=== PATIENT | female | born 1995 | race Caucasian/White ===

== ENCOUNTER 2023-09-02 18:19 | Emergency (ER) | payer OTHER ==
[2023-09-02 18:42] VITALS: TEMP 97.8; O2SAT 100
--- NOTE | 2023-09-02 19:04 | ERPHSYRPT ---
- History of Present Illness Time Seen by Provider: 09/02/23 18:51 Source: patient Exam Limitations: no limitations Patient Subjective Stated Complaint: Pt states "I have anxiety and and I am not sure if this is anxiety or what but my left arm has been hurting since yesterday it feels like someone is squeezing my left arm." Triage Nursing Assessment: Pt presented alert and oriented X 3, skin pwd. PT appears anxious and is fidgeting. PT speaking rapidly. PT able to calm when speaking. Physician History: Since yesterday pt has had anxiety and left upper arm pain with tingling of her left hand and left side of her neck; denies chest pain, repetitive motion of her left arm, fever. Allergies/Adverse Reactions: Penicillins Allergy (Verified 09/02/23 18:43) nasuea dizzy ibuprofen Adverse Reaction (Severe, Verified 09/02/23 18:42) nasuea and vomiting Home Medications: No Reportable Medications [No Reported Medications] 09/02/23 [History] Hx Tetanus, Diphtheria Vaccination/Date Given: No Hx Influenza Vaccination/Date Given: No Hx Pneumococcal Vaccination/Date Given: No Immunizations Up to Date: No Travel Risk - International Travel Have you traveled outside of the country in past 3 weeks: No - Emerging Infectious Disease Are you exhibiting symptoms associated with any current EIDs: No - Review of Systems Constitutional: No Fever Ears, Nose, & Throat: No Ear Pain, No Throat Pain Respiratory: No Cough Cardiac: No Chest Pain Abdominal/Gastrointestinal: No Abdominal Pain, No Nausea, No Vomiting, No Diarr hea Psychological: Anxiety - Past Medical History Pertinent Past Medical History: Yes Psycho-Social History: Anxiety, Panic Disorder - Past Surgical History Past Surgical History: Yes Other Surgical History: mass in left arm. breast augmentation - Female History Hx Last Menstrual Period: 08/18/2023 Hx Now: No - Social History Smoking Status: Never smoker Exposure to second hand smoke: No Drug Use: none - Social Determinants of Health Will the patient participate in the screening: Yes Do you worry about a steady place to live?: No Do you have any problems with any of the following?: No known problems In the past 12 months,have you had to go without utilities?: No Transportation Issues: No Has anyone in your support network made you feel unsafe?: No Have you or anyone in your house had to go without enough: No - Nursing Vital Signs Nursing Vital Signs: Initial Vital Signs Temperature 97.8 F 09/02/23 18:32 Pulse Rate 102 H 09/02/23 18:32 Respiratory Rate 18 09/02/23 18:32 Blood Pressure 136/84 09/02/23 18:32 O2 Sat by Pulse Oximetry 100 09/02/23 18:32 Pain Scale Pain Intensity 3 - Physical Exam General Appearance: alert, anxiety Eyes, Ears, Nose, Throat Exam: TMs normal, pharynx normal, moist mucous membranes Neck Exam: normal inspection, non-tender Cardiovascular/Respiratory Exam: normal breath sounds, heart sounds normal Abdominal Exam: soft (B.S. normal) Back Exam: normal inspection Shoulder Exam: normal ROM Elbow/Forearm Exam: normal ROM Wrist Exam: normal ROM Hand Exam: normal ROM Neuro/Tendon Exam: normal sensation, normal motor functions, no evidence tendon injury Mental Status Exam: alert, cooperative Skin Exam: warm, dry SpO2 Interpretation: normal SpO2: 100 O2 Delivery: Room Air - Course Nursing assessment & vital signs reviewed: Yes EKG Interpreted by Me: RATE (83), Sinus Rhythm, NORMAL AXIS, Other (QTc = 411) - Radiology Exams Chest X-ray Interpretation: Interpreted by me, No Pneumonia Left Humerus X-ray Interpretation: Interpreted by me, No Fracture Ordered Tests: Active Orders 24 hr Category Date Time Status EKG-ER Only STAT Care 09/02/23 19:06 Active CHEST 2 VIEWS (PA AND LAT) Stat Exams 09/02/23 19:08 Taken HUMERUS Stat Exams 09/02/23 19:10 Taken BMP Stat Lab 09/02/23 19:25 Completed CBC W DIFF Stat Lab 09/02/23 19:25 Completed HCG QUALITATIVE, SERUM Stat Lab 09/02/23 19:25 Completed MAGNESIUM Stat Lab 09/02/23 19:25 Completed TROPONIN Q4H Lab 09/02/23 19:25 Completed TROPONIN Q4H Lab 09/02/23 23:15 Ordered TROPONIN Q4H Lab 09/03/23 03:15 Ordered UA W/RFX UR CULTURE Stat Lab 09/02/23 19:13 Completed Urine Triage Profile Stat Lab 09/02/23 19:13 Completed Medication Summary Discontinued Medications Generic Name Dose Route Start Last Admin Trade Name Freq PRN Reason Stop Dose Admin Lorazepam 1 mg 09/02/23 19:09 09/02/23 19:23 Lorazepam 1 Mg Tablet PO 09/02/23 19:10 1 mg STAT ONE Administration Lorazepam Confirm 09/02/23 19:21 Lorazepam 1 Mg Tablet Administered 09/02/23 19:22 Dose 1 mg .ROUTE .STK-MED ONE Lab/Rad Data: Laboratory Result Diagrams 09/02/23 19:25 09/02/23 19:25 Laboratory Results 09/02/23 09/02/23 09/02/23 Range/Units 19:25 19:25 19:25 WBC (3.98-10.04) x10^3/uL RBC (3.93-5.22) x10^6/uL Hgb (11.2-15.7) g/dL Hct (34.1-44.9) % MCV (79.4-94.8) fL MCH (25.6-32.2) pg MCHC (32.2-35.5) g/dL RDW (11.7-14.4) % Plt Count (182-369) x10^3/uL MPV (9.4-12.3) fL Gran % (34.0-71.1) % Immature Gran % (Auto) (0.001-0.429) % Nucleat RBC Rel Count (0.00-0.2) % Eos # (Auto) (0.04-0.36) x10^3/uL Immature Gran # (Auto) (0.001-0.031) x10^3u/L Absolute Lymphs (auto) (1.18-3.74) x10^3/uL Absolute Monos (auto) (0.24-0.86) x10^3/uL Absolute Nucleated RBC (0.00-0.012) x10^3u/L Lymphocytes % (19.3-51.7) % Monocytes % (4.7-12.5) % Eosinophils % (0.7-5.8) % Basophils % (0.1-1.2) % Absolute Granulocytes (1.56-6.13) x10^3/uL Basophils # (0.01-0.08) x10^3/uL Sodium 139 (135-145) mmol/L Potassium 3.4 L (3.5-5.1) mmol/L Chloride 103 (98-107) mmol/L Carbon Dioxide 26 (22-30) mmol/L Anion Gap 13.0 (5-15) MEQ/L BUN 15 (7-17) mg/dL Creatinine 0.77 (0.52-1.04) mg/dL Estimated GFR 107.0 ML/MIN Glucose 99 (74-106) mg/dL Calcium 10.0 (8.4-10.2) mg/dL Magnesium 1.9 (1.6-2.3) mg/dL Troponin I < 0.012 (0.000-0.033) ng/mL Serum HCG, Qual NEGATIVE (NEGATIVE) Urine Color (Yellow) Urine Appearance (Clear) Urine pH (4.6-8.0) Ur Specific Hasty (1.005-1.030) Urine Protein (Negative) Urine Glucose (UA) (Negative) mg/dL Urine Ketones (Negative) Urine Blood (Negative) Urine Nitrite (Negative) Urine Bilirubin (Negative) Urine Urobilinogen (0.2) mg/dL Ur Leukocyte Esterase (Negative) U Hyaline Cast (Auto) (0-2) /LPF Urine Microscopic RBC (0-5) /HPF Urine Microscopic WBC (0-5) /HPF Ur Epithelial Cells (None Seen) /HPF Urine Bacteria (None Seen) /HPF Urine Culture Reflexed (NO) Urine Opiates Level (NEGATIVE) Ur Methadone (NEGATIVE) Urine Barbiturates (NEGATIVE) Ur Phencyclidine (PCP) (NEGATIVE) Urine Amphetamine (NEGATIVE) U Benzodiazepine Level (NEGATIVE) Urine Cocaine (NEGATIVE) Urine Marijuana (THC) (NEGATIVE) 09/02/23 09/02/23 09/02/23 Range/Units 19:25 19:13 19:13 WBC 8.6 (3.98-10.04) x10^3/uL RBC 4.30 (3.93-5.22) x10^6/uL Hgb 12.8 (11.2-15.7) g/dL Hct 37.6 (34.1-44.9) % MCV 87.4 (79.4-94.8) fL MCH 29.8 (25.6-32.2) pg MCHC 34.0 (32.2-35.5) g/dL RDW 11.9 (11.7-14.4) % Plt Count 269 (182-369) x10^3/uL MPV 9.3 L (9.4-12.3) fL Gran % 47.1 (34.0-71.1) % Immature Gran % (Auto) 0.2 (0.001-0.429) % Nucleat RBC Rel Count 0.0 (0.00-0.2) % Eos # (Auto) 0.09 (0.04-0.36) x10^3/uL Immature Gran # (Auto) 0.02 (0.001-0.031) x10^3u/L Absolute Lymphs (auto) 3.72 (1.18-3.74) x10^3/uL Absolute Monos (auto) 0.67 (0.24-0.86) x10^3/uL Absolute Nucleated RBC 0.00 (0.00-0.012) x10^3u/L Lymphocytes % 43.3 (19.3-51.7) % Monocytes % 7.8 (4.7-12.5) % Eosinophils % 1.0 (0.7-5.8) % Basophils % 0.6 (0.1-1.2) % Absolute Granulocytes 4.04 (1.56-6.13) x10^3/uL Basophils # 0.05 (0.01-0.08) x10^3/uL Sodium (135-145) mmol/L Potassium (3.5-5.1) mmol/L Chloride (98-107) mmol/L Carbon Dioxide (22-30) mmol/L Anion Gap (5-15) MEQ/L BUN (7-17) mg/dL Creatinine (0.52-1.04) mg/dL Estimated GFR ML/MIN Glucose (74-106) mg/dL Calcium (8.4-10.2) mg/dL Magnesium (1.6-2.3) mg/dL Troponin I (0.000-0.033) ng/mL Serum HCG, Qual (NEGATIVE) Urine Color Yellow (Yellow) Urine Appearance Clear (Clear) Urine pH 5.5 (4.6-8.0) Ur Specific Hasty 1.025 (1.005-1.030) Urine Protein Negative (Negative) Urine Glucose (UA) Negative (Negative) mg/dL Urine Ketones Trace A (Negative) Urine Blood Negative (Negative) Urine Nitrite Negative (Negative) Urine Bilirubin Negative (Negative) Urine Urobilinogen 0.2 (0.2) mg/dL Ur Leukocyte Esterase Negative (Negative) U Hyaline Cast (Auto) NONE SEEN (0-2) /LPF Urine Microscopic RBC 0-2 (0-5) /HPF Urine Microscopic WBC 3-5 (0-5) /HPF Ur Epithelial Cells Few (None Seen) /HPF Urine Bacteria Few A (None Seen) /HPF Urine Culture Reflexed NO (NO) Urine Opiates Level NEGATIVE (NEGATIVE) Ur Methadone NEGATIVE (NEGATIVE) Urine Barbiturates NEGATIVE (NEGATIVE) Ur Phencyclidine (PCP) NEGATIVE (NEGATIVE) Urine Amphetamine NEGATIVE (NEGATIVE) U Benzodiazepine Level NEGATIVE (NEGATIVE) Urine Cocaine NEGATIVE (NEGATIVE) Urine Marijuana (THC) NEGATIVE (NEGATIVE) - Progress Progress: improved Counseled pt/family regarding: lab results, diagnosis, need for follow-up, rad results Medical Desision Making - Diagnostic Testing Diagnostic test were ordered, analyzed, and reviewed by me: Yes Radiological Interpretation: Interpreted by me - Departure Departure Disposition: Home Clinical Impression: Left arm pain, Anxiety Condition: Stable Critical Care Time: No Referrals: KALEY CARROLL NP [NON-STAFF PHY W/O PRIVILEGES] - Follow up/PCP as directed Instructions: Anxiety, Adult (DC) Additional Instructions: Follow up with private doctor tomorrow. Forms: Work/School Release Form
[2023-09-02] MEDS ORDERED: Ativan 1 MG ONE (19:21)
[2023-09-02] MEDS: Ativan 1 MG PO ONE (19:23)
[2023-09-02 19:29] LABS: Absolute Neutrophil Ct (ANC) 4.04 x10^3/uL (1.56-6.13); BASOPHIL % 0.6 % (0.1-1.2); Basophil (Absolute #) 0.05 x10^3/uL (0.01-0.08); Eosinophil (Absolute #) 0.09 x10^3/uL (0.04-0.36); Hematocrit 37.6 % (34.1-44.9); Hemoglobin 12.8 g/dL (11.2-15.7); IMMATURE GRAN # 0.02 x10^3u/L (0.001-0.031); IMMATURE GRAN % 0.2 % (0.001-0.429); Lymphocyte (Absolute #) 3.72 x10^3/uL (1.18-3.74); Lymphocytes % 43.3 % (19.3-51.7); Mean Cell Volume 87.4 fL (79.4-94.8); Mean Corpuscular Hemoglobin 29.8 pg (25.6-32.2); Mean Platelet Volume 9.3 fL (9.4-12.3); Monocyte (Absolute #) 0.67 x10^3/uL (0.24-0.86); Monocytes % 7.8 % (4.7-12.5); Neutrophil % 47.1 % (34.0-71.1); Platelet Count 269 x10^3/uL (182-369); Red Cell Distribution Width 11.9 % (11.7-14.4); White Blood Count 8.6 x10^3/uL (3.98-10.04)
[2023-09-02 19:41] LABS: ADD URINE CULTURE? NO (NO); Appearance Clear (Clear); Bacteria Few /HPF (None Seen); Bilirubin Negative (Negative); Blood Negative (Negative); Epithelial Cells Few /HPF (None Seen); Glucose, Urine Negative (Negative); Hyaline Casts NONE SEEN /LPF (0-2); Ketones Trace (Negative); Leukocyte Esterase Negative (Negative); Nitrite Negative (Negative); Ph 5.5 (4.6-8.0); Protein,Urine Dip Negative (Negative); RBC 0-2 /HPF (0-5); Specific Gravity 1.025 (1.005-1.030); Urobilinogen 0.2 mg/dL (0.2)
[2023-09-02 19:43] LABS: Creatinine 1 0.77 mg/dL (0.52-1.04); MAGNESIUM 1.9 mg/dL (1.6-2.3); Potassium 3.4 mmol/L (3.5-5.1)
[2023-09-02 19:51] LABS: HCG SERUM TEST NEGATIVE (NEGATIVE)
[2023-09-02 19:53] LABS: Amphetamine,Urine NEGATIVE (NEGATIVE); Barbiturate,Urine NEGATIVE (NEGATIVE); Benzodiazepine,Urine NEGATIVE (NEGATIVE); Cocaine,Urine NEGATIVE (NEGATIVE); Methadone,Urine NEGATIVE (NEGATIVE); Opiate,Urine NEGATIVE (NEGATIVE); PCP,Urine NEGATIVE (NEGATIVE); THC,Urine NEGATIVE (NEGATIVE)
[2023-09-02 22:30] VITALS: BP 116/68; PULSE 78; RESP 18
--- NOTE | 2023-09-03 08:42 | XRAY ---
Indication: Left arm pain. Comparison: None PA/lateral chest demonstrates normal heart, lungs, and bony thorax. Incidental bilateral breast implants.
--- NOTE | 2023-09-03 08:42 | XRAY ---
Indication: Pain. No known injury. Comparison: None 2 view left humerus obtained. No bony, articular, or soft tissue abnormalities.
== END 2023-09-02 22:30 | disposition home or self-care (01) ==
LOC: ED 18:19
DX: F41.9 Anxiety disorder, unspecified (principal); M79.622 Pain in left upper arm
CPT/HCPCS: 36415; 71046; 73060; 80048; 80307; 81001; 83735; 84484; 84703; 85025; 93005; 99284; A9270-GY